=== PATIENT | female | born 1975 | race Caucasian/White ===

== ENCOUNTER 2025-06-21 12:23 | Day surgery (SDC) | payer BC, SELFPAY ==
[2025-06-20 09:19] VITALS: BMI 40.8
--- NOTE | 2025-06-21 14:33 | ITS.CL.IMPLP ---
Acute Care Nurse - Implant Loop
Implant Loop
Procedure Report:
Date of Procedure: June 21, 2025.
Procedure: Insertable Loop Recorder Implant.
Indication: Embolic stroke of unknown source.
Performing physician: Roger Mendez MD, [facility].
Implant: [employer]; Reveal LINQII; Model# LNQ22; Serial#[id number].
Technique: The patient was prepped and draped in the usual fashion. A time-out was performed. No intravenous sedation was administered. Local anesthetic was applied to the left pre-pectoral subcutaneous tissue. Using the insertion kit an incision
was made left of the midline in the fourth intercostal space and the device was implanted subcutaneously and directed towards the nipple. Hemostasis was excellent. The skin was closed with steri-strips. The estimated blood loss was less than 0.5 ml.
There were no complications. No fluoroscopy. R waves measured 0.4 mV and P waves were visible.
Final Programming: Detections: Afib, tachy at 160 bpm, jose at 30 bpm, pause at 3 sec.
Conclusion: Uncomplicated insertable loop implant.
Recommendation: Routine post-insertable loop care. The device is MRI conditional without a waiting period and up to 3 Pam.
cc: Kimo Garcia DO, Aj Cunha MD ([place], [place]), and Trudi Angulo MD (Neurology, [facility]).
== END 2025-06-21 14:03 | disposition home or self-care (01) ==
LOC: CATH 12:23
PROVIDERS: ATTENDING PHYSICIAN Internal Medicine Cardiovascular Disease; FAMILY PHYSICIAN Family Medicine; OTHER PHYSICIAN Internal Medicine Cardiovascular Disease
DX: Z09 Encounter for follow-up examination after completed treatment for conditions other than malignant neoplasm (principal); G45.4 Transient global amnesia; R26.9 Unspecified abnormalities of gait and mobility; Z86.73 Personal history of transient ischemic attack (TIA), and cerebral infarction without residual deficits; E66.01 Morbid (severe) obesity due to excess calories; E78.5 Hyperlipidemia, unspecified; I10 Essential (primary) hypertension; I35.0 Nonrheumatic aortic (valve) stenosis; I47.10 Supraventricular tachycardia, unspecified; I49.3 Ventricular premature depolarization; Q23.81 Bicuspid aortic valve; Z72.0 Tobacco use; Z79.899 Other long term (current) drug therapy; Z79.82 Long term (current) use of aspirin; Z79.02 Long term (current) use of antithrombotics/antiplatelets; Z90.710 Acquired absence of both cervix and uterus; Z68.41 Body mass index [BMI] 40.0-44.9, adult
CPT/HCPCS: 33285; 93005; C1764